=== PATIENT | female | born 1965 | race Caucasian/White ===

== ENCOUNTER 2017-07-10 14:49 | Emergency (ER) | payer MEDICARE, MEDICAID ==
[2017-07-10 15:00] VITALS: BP 159/91
--- NOTE | 2017-07-10 15:10 | EDM.PDOC ---
ED HPI GENERAL MEDICAL PROBLEM - General Chief Complaint: Upper Extremity Injury/Pain Stated Complaint: LT WRIST PAIN Time Seen by Provider: 07/10/17 15:10 Source of Information: Reports: Patient History Limitations: Reports: No Limitations - History of Present Illness INITIAL COMMENTS - FREE TEXT/NARRATIVE: HISTORY AND PHYSICAL: []52-year-old female presenting per EMS for wrist pain for 2 days History of Present Illness: []Patient was trying to push herself to get out of bed and felt pain immediately from the wrist towards her elbow The ambulance crew placed a splint onto her arm States there is been no pain since yesterday morning She is a known diabetic that is uncontrolled Multiple scabbing and open areas on her arms where she states she had "blisters " Review of Systems: As per history of present illness and below otherwise all systems reviewed and negative. Past medical history: As per history of present illness and as reviewed below otherwise noncontributory. Surgical history: As per history of present illness and as reviewed below otherwise noncontributory. Social history: No reported history of drug or alcohol abuse. Family history: As per history of present illness and as reviewed below otherwise noncontributory. Physical exam: Alert and oriented female answering questions appropriately in full sentences speaking quite rapidly. Gauze abrasive been removed patient is reluctant to have me touch her arm radial pulses intact. Patient moves her fingers with encouragement refuses to move radially. No erythema mild edema. HEENT: Atraumatic, normocehpalic, pupils reactive, negative for conjunctival pallor or scleral icterus, mucous membranes moist, throat clear, neck supple, nontender, trachea midline. Lungs: Clear to auscultation, breath sounds equal bilaterally, chest non tender. Heart: S1S2, regular, negative for clicks, rubs, or JVD. Abdomen: Soft, nondistended, nontender. Negative for masses or hepatossplenmegaly. Negative for costovertebral tenderness. Pelvis: Stable nontender. Genitourinary: Deferred. Rectal: Deferred Extremities: Atraumatic, negative for cords or calf pain. Neurovascular unremarkable. Neuro: Awake, alert, oriented. Cranial nerves II through XII unremarkable. Cerebellum unremarkable. Motor and sensory unremarkable throughout. Exam nonfocal. Discussed with the patient that her x-ray was negative no inflammation no fracture and no dislocation noted For her comfort a cockup wrist splint will be applied Recommended that she take ibuprofen 3 times a day for this pain to elevate and ice Diagnostics: []xray left wrist. Therapeutics: [] Impression: []Left wrist pain Plan: []discharge home ibuprofen for discomfort elevate and ice follow up with your PCP next week Attended emergency room as directed and discussed Definitive disposition and diagnosis as appropriate pending reevaluation and review of above. Onset: Sudden Duration: Day(s): (2) left wrist Pain Score (Numeric/FACES): 10 - Related Data Allergies Allergy/AdvReac Type Severity Reaction Status Date / Time alcohol Allergy Rash Verified 07/10/17 14:57 Iodinated Contrast- Oral and Allergy Rash Verified 07/10/17 14:57 IV Dye [Iodinated Contrast Media - IV Dye] loperamide HCl Allergy Rash Verified 07/10/17 14:57 [From Imodium A-D] biocin Antibiotic Allergy Rash Uncoded 09/10/14 21:48 GI cocktail Allergy Rash Uncoded 09/10/14 21:48 Home Meds: Home Meds Aspirin [[place] Aspirin] 81 mg PO DAILY 12/23/13 [History] Escitalopram [Lexapro] 30 mg PO DAILY 12/23/13 [History] Insulin Glarg,Human.Rec.Analog [Lantus] 48 units SQ BID 12/23/13 [History] Insulin Lispro [HumaLOG] 11 units SQ TID 12/23/13 [History] sitaGLIPtin Phos/Metformin HCl [Janumet 50-1,000 MG] 50 - 1,000 mg PO BID [History] Diclofenac Sodium [Voltaren] 75 mg PO BID 07/10/17 [History] Omeprazole 40 mg PO DAILY 07/10/17 [History] Ranitidine [Zantac] 150 mg PO BID 07/10/17 [History] Past Medical History Other Gastrointestinal History: rectal tumor Review of Systems - Review of Systems Review Of Systems: ROS reveals no pertinent complaints other than HPI. ED EXAM, GENERAL - Physical Exam Exam: See Below (see dictation) Course - Vital Signs Last Recorded V/S: Last Vital Signs Temp 35.8 C 07/10/17 14:57 Pulse 117 H 07/10/17 14:57 Resp 18 07/10/17 14:57 BP 159/91 H 07/10/17 14:57 Pulse Ox 96 07/10/17 14:57 - Orders/Labs/Meds Orders: Active Orders 24 hr Category Date Time Status Splinting [RC] ASDIRECTED Care 07/10/17 15:49 Active Departure - Departure Time of Disposition: 15:51 Disposition: Home, Self-Care 01 Condition: Good Clinical Impression: Right wrist sprain Qualifiers: Encounter type: initial encounter Qualified Code(s): S63.501A - Unspecified sprain of right wrist, initial encounter - Discharge Information Instructions: Wrist Sprain, Adult Forms: ED Department Discharge Additional Instructions: The following information is given to patients seen in the emergency department who are being discharged to home. This information is to outline your options for follow-up care. We provide all patients seen in our emergency department with a follow-up referral. The need for follow-up, as well as the timing and circumstances, are variable depending upon the specifics of your emergency department visit. If you don't have a primary care physician on staff, we will provide you with a referral. We always advise you to contact your personal physician following an emergency department visit to inform them of the circumstance of the visit and for follow-up with them and/or the need for any referrals to a consulting specialist. The emergency department will also refer you to a specialist when appropriate. This referral assures that you have the opportunity for followup care with a specialist. All of these measure are taken in an effort to provide you with optimal care, which includes your followup. Under all circumstances we always encourage you to contact your private physician who remains a resource for coordinating your care. When calling for followup care, please make the office aware that this follow-up is from your recent emergency room visit. If for any reason you are refused follow-up, please contact the [facility] emergency department at and asked to speak to the emergency department charge nurse. No fractures or dislocations were noted on x-ray Follow up with your primary care provider next week a wrist splint has been applied for your comfort. Ibuprofen tid for discomfort You may ice and elevat on 20 minutes off 20 minutes Return to the ER as directed and discussed - My Orders Last 24 Hours: My Active Orders 07/10/17 15:49 Splinting [RC] ASDIRECTED - Assessment/Plan Last 24 Hours: My Active Orders 07/10/17 15:49 Splinting [RC] ASDIRECTED
--- NOTE | 2017-07-10 15:36 | CR ---
EXAMINATION: Left wrist HISTORY: Pain COMPARISON: 01/12/2009 TECHNIQUE: 2 views FINDINGS/IMPRESSION: There is moderate chondrocalcinosis noted without a definite fracture or acute o sseous abnormality. Bone mineralization and joint spaces otherwise appear preserved. Radiocarpal alig nment is normal.
== END 2017-07-10 16:18 | disposition home or self-care (01) ==
LOC: MW.ED 14:49
DX: S63.501A Unspecified sprain of right wrist, initial encounter (principal); Z91.041 Radiographic dye allergy status; Z88.8 Allergy status to other drugs, medicaments and biological substances; Z79.82 Long term (current) use of aspirin; Z79.4 Long term (current) use of insulin; Z79.899 Other long term (current) drug therapy; X58.XXXA Exposure to other specified factors, initial encounter
CPT/HCPCS: 73100-26-LT; 73100-LT; 99283

== ENCOUNTER 2018-12-20 13:28 | Emergency (ER) | payer MEDICARE, MEDICAID ==
--- NOTE | 2018-12-20 13:53 | EDM.PDOC ---
ED HPI GENERAL MEDICAL PROBLEM - General Chief Complaint: Upper Extremity Injury/Pain Stated Complaint: HURT RT WRIST Time Seen by Provider: 12/20/18 13:37 Source of Information: Reports: Patient History Limitations: Reports: No Limitations - History of Present Illness INITIAL COMMENTS - FREE TEXT/NARRATIVE: History of present illness: []She did 7 loads of laundry 2 days ago and today cannot move her right wrist secondary to pain, she states she has numbness in all her fingers. Review of systems: As per history of present illness and below otherwise all systems reviewed and negative. Past medical history: As per history of present illness and as reviewed below otherwise noncontributory. Surgical history: As per history of present illness and as reviewed below otherwise noncontributory. Social history: No reported history of drug or alcohol abuse. Family history: As per history of present illness and as reviewed below otherwise noncontributory. Physical exam: General: Well developed, well nourished in NAD HEENT: Atraumatic, normocephalic, pupils reactive, negative for conjunctival pallor or scleral icterus, mucous membranes moist, throat clear, neck supple, nontender, trachea midline. Lungs: Clear to auscultation, breath sounds equal bilaterally, chest nontender. Heart: S1S2, regular, negative for clicks, rubs, or JVD. Abdomen: NABS, Soft, nondistended, nontender. Negative for masses or hepatosplenomegaly. Negative for costovertebral tenderness. Pelvis: Stable nontender. Genitourinary: Deferred. Rectal: Deferred. Extremities: Atraumatic, tender right wrist without swelling, erythema or deformity. negative for cords or calf pain. Neurovascular unremarkable. Neuro: Awake, alert, oriented. Cranial nerves II through XII unremarkable. Cerebellum unremarkable. Motor and sensory unremarkable throughout. Exam nonfocal. Skin:warm and dry Diagnostics: xray shows chondrocalcinosis no acute fracture. Therapeutics: Cock-up splint ED Course: Stable Impression: Tendonitis right wrist Prescriptions: Diclofenac Plan: , Wear splint, ice, Take meds as directed, follow up with your primary care physician, return to ER if symptoms worsen or change. Definitive disposition and diagnosis as appropriate pending reevaluation and review of above. Right Wrist Pain Score (Numeric/FACES): 10 - Related Data Allergies Allergy/AdvReac Type Severity Reaction Status Date / Time alcohol Allergy Rash Verified 12/20/18 13:40 Iodinated Contrast Media Allergy Rash Verified 12/20/18 13:40 [Iodinated Contrast Media - IV Dye] loperamide HCl Allergy Rash Verified 12/20/18 13:40 [From Imodium A-D] biocin Antibiotic Allergy Rash Uncoded 12/20/18 13:40 GI cocktail Allergy Rash Uncoded 12/20/18 13:40 Home Meds: Home Meds Aspirin [[place] Aspirin] 81 mg PO DAILY 12/23/13 [History] Escitalopram [Lexapro] 30 mg PO DAILY 12/23/13 [History] Insulin Glarg,Human.Rec.Analog [Lantus] 48 units SQ BID 12/23/13 [History] Insulin Lispro [HumaLOG] 11 units SQ TID 12/23/13 [History] sitaGLIPtin Phos/Metformin HCl [Janumet 50-1,000 MG] 50 - 1,000 mg PO BID [History] Diclofenac Sodium [Voltaren] 75 mg PO BID 07/10/17 [History] Omeprazole 40 mg PO DAILY 07/10/17 [History] Ranitidine [Zantac] 150 mg PO BID 07/10/17 [History] Diclofenac Sodium [Voltaren] 75 mg PO BIDMEALS PRN #20 tab.cr 12/20/18 [Rx] Past Medical History HEENT History: Reports: None Cardiovascular History: Reports: Hypertension Respiratory History: Reports: None Gastrointestinal History: Reports: None, Other (See Below) Other Gastrointestinal History: rectal tumor Genitourinary History: Reports: None SENIOR BUYER History: Reports: None Musculoskeletal History: Reports: Other (See Below) Other Musculoskeletal History: left leg broken , carpal tunnel Neurological History: Reports: None Psychiatric History: Reports: None Endocrine/Metabolic History: Reports: Diabetes, Type II Hematologic History: Reports: None Immunologic History: Reports: None Oncologic (Cancer) History: Reports: None Dermatologic History: Reports: None - Infectious Disease History Infectious Disease History: Reports: None - Past Surgical History Head Surgeries/Procedures: Reports: None HEENT Surgical History: Reports: None Cardiovascular Surgical History: Reports: None Respiratory Surgical History: Reports: None Female Surgical History: Reports: Hysterectomy Endocrine Surgical History: Reports: None Neurological Surgical History: Reports: None Musculoskeletal Surgical History: Reports: None Oncologic Surgical History: Reports: None Dermatological Surgical History: Reports: None Social & Family History - Family History Family Medical History: Noncontributory - Tobacco Use Smoking Status *Q: Current Every Day Smoker Years of Tobacco use: 21 Packs/Tins Daily: 0.1 - Caffeine Use Caffeine Use: Reports: Coffee - Recreational Drug Use Recreational Drug Use: No Review of Systems - Review of Systems Review Of Systems: See Below ED EXAM, GENERAL - Physical Exam Exam: See Below Course - Vital Signs Last Recorded V/S: Last Vital Signs Temp 96.3 F 12/20/18 13:41 Pulse 79 12/20/18 13:41 Resp 16 12/20/18 13:41 BP 149/83 H 12/20/18 13:41 Pulse Ox 95 12/20/18 13:41 - Orders/Labs/Meds Orders: Active Orders 24 hr Category Date Time Status Splinting [RC] ASDIRECTED Care 12/20/18 14:29 Ordered Departure - Departure Time of Disposition: 14:32 Disposition: Home, Self-Care 01 Condition: Good Clinical Impression: Tendinitis of right wrist - Discharge Information *PRESCRIPTION DRUG MONITORING PROGRAM REVIEWED*: Not Applicable *COPY OF PRESCRIPTION DRUG MONITORING REPORT IN PATIENT JESSIE: Not Applicable Prescriptions: Diclofenac Sodium [Voltaren] 75 mg PO BIDMEALS PRN #20 tab.cr PRN Reason: Pain Forms: ED Department Discharge Additional Instructions: The following information is given to patients seen in the emergency department who are being discharged to home. This information is to outline your options for follow-up care. We provide all patients seen in our emergency department with a follow-up referral. The need for follow-up, as well as the timing and circumstances, are variable depending upon the specifics of your emergency department visit. If you don't have a primary care physician on staff, we will provide you with a referral. We always advise you to contact your personal physician following an emergency department visit to inform them of the circumstance of the visit and for follow-up with them and/or the need for any referrals to a consulting specialist. The emergency department will also refer you to a specialist when appropriate. This referral assures that you have the opportunity for follow-up care with a specialist. All of these measure are taken in an effort to provide you with optimal care, which includes your follow-up. Under all circumstances we always encourage you to contact your private physician who remains a resource for coordinating your care. When calling for follow-up care, please make the office aware that this follow-up is from your recent emergency room visit. If for any reason you are refused follow-up, please contact the [facility] Emergency Department at and asked to speak to the emergency department charge nurse. Take meds as directed, follow up with your primary care physician, return to ER if symptoms worsen or change. [facility] [address] [place] [id number] - My Orders Last 24 Hours: My Active Orders 12/20/18 14:29 Splinting [RC] ASDIRECTED - Assessment/Plan Last 24 Hours: My Active Orders 12/20/18 14:29 Splinting [RC] ASDIRECTED
--- NOTE | 2018-12-20 14:22 | CR ---
Right wrist: Three views of the right wrist were obtained. Comparison: No prior wrist exam. Joint spaces are preserved. Mild chondrocalcinosis is noted within the triangular fibrocartilage. No acute fracture, dislocation or other bony abnormality is seen. Impression: 1. Chondrocalcinosis. 2. Nothing acute is seen on right wrist exam. Diagnostic code #2 MTDD
[2018-12-20 15:07] VITALS: BP 144/82; PULSE 86
== END 2018-12-20 14:56 | disposition home or self-care (01) ==
LOC: MW.ED 13:28
DX: M77.9 Enthesopathy, unspecified (principal); I10 Essential (primary) hypertension; E11.9 Type 2 diabetes mellitus without complications; F17.210 Nicotine dependence, cigarettes, uncomplicated; Z79.4 Long term (current) use of insulin; Z79.82 Long term (current) use of aspirin; Z88.1 Allergy status to other antibiotic agents; Z88.8 Allergy status to other drugs, medicaments and biological substances; Z88.2 Allergy status to sulfonamides; Z91.018 Allergy to other foods; Z91.041 Radiographic dye allergy status; Z91.048 Other nonmedicinal substance allergy status
CPT/HCPCS: 73110-26-RT; 73110-RT; 99283; 99283-25